=== PATIENT | male | born 2000 | race Caucasian/White ===

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

== ENCOUNTER → 2020-04-08 | Outpatient (CLI) | payer MEDICAID ==
--- NOTE | 2020-04-09 08:51 | XR ---
Left forearm and left wrist HISTORY: M 78.632 2 views of the left forearm, 4 views the left wrist Bone mineralization, joint spaces and alignment are maintained. No fracture or dislocation. IMPRESSION: Unremarkable left forearm and wrist.
== END | disposition home or self-care (01) ==
LOC: RADXRMAIN 16:08
PROVIDERS: ATTEND Family Medicine
DX: M79.632 Pain in left forearm (principal)

== ENCOUNTER → 2020-07-15 | Outpatient (CLI) | payer MEDICAID ==
--- NOTE | 2020-07-15 17:55 | CT ---
EXAMINATION TYPE: CT brain wo con DATE OF EXAM: 07/15/2020 COMPARISON: None INDICATION: Left eye contusion after injury yesterday. DLP: 869.7 mGycm, Automated exposure control for dose reduction was used. CONTRAST: None CT of the brain is performed utilizing 3 mm thick sections through the posterior fossa and 3 mm thick sections through the remaining calvarium. Study is performed within 24 hours of arrival to the [facility]. No abnormal hyperdensity is present to suggest an acute intracranial hemorrhage. No mass lesion is evident. No acute infarcts are evident. Ventricles and sulci are appropriate for the patient age. Paranasal sinuses and mastoid air cells within the [id number] are clear. Left orbit appears unremarkable. No fractures evident IMPRESSIONS: 1. Normal CT Brain
== END | disposition home or self-care (01) ==
LOC: RADCTMAIN 17:20
PROVIDERS: ATTEND Nurse Practitioner Family
DX: S00.83XA Contusion of other part of head, initial encounter (principal)
CPT/HCPCS: 70450

== ENCOUNTER → 2022-11-23 | Outpatient (CLI) | payer MEDICAID ==
[2022-11-23 15:54] LABS: Basophils # (A) 0.07 X 10*3/uL (0.00-0.10); Basophils % (A) 1.2 %; Eosinophils # (A) 0.26 X 10*3/uL (0.04-0.35); Eosinophils % (A) 4.6 %; HCT 49.6 % (39.6-50.0); Lymphocytes # (A) 2.37 X 10*3/uL (0.90-5.00); Lymphocytes % (A) 41.8 %; MCH 30.3 pg (27.0-32.0); MCHC 34.3 d/dL (32.0-37.0); MCV 88.4 FL (80.0-97.0); Mean Platelet Volume 10.5 FL (9.5-12.2); Monocytes # (A) 0.53 X 10*3/uL (0.20-1.00); Monocytes % (A) 9.3 %; NRBC Per 100 WBC 0 X 10*3/uL (0.00-0.01); Neutrophils # (A) 2.41 X 10*3/uL (1.80-7.70); Neutrophils % (A) 42.6 %; Platelet Count 199 X 10*3/uL (140-440); RBC 5.61 X 10*6/uL (4.40-5.60); RDW 11.6 % (11.5-14.5); WBC 5.67 X 10*3/uL (4.50-10.00)
[2022-11-23 16:17] LABS: ALT 57 U/L (10-49); AST 33 U/L (14-35); Alkaline Phosphatase 105 U/L (41-126); BUN/Creat Ratio 14.64 Ratio (12.00-20.00); Blood Urea Nitrogen 16.1 mg/dL (9.0-27.0); Calcium 9.9 mg/dL (8.7-10.3); Carbon Dioxide 28.8 mmol/L (21.6-31.8); Chloride 103 mmol/L (96-109); Glucose 89 mg/dL (70-110); LDL Cholesterol,Calculated 111.8 mg/dL (0.0-131.0); Potassium 4.6 mmol/L (3.5-5.5); Sodium 143 mmol/L (135-145); Total Bilirubin 0.8 mg/dL (0.3-1.2)
== END | disposition home or self-care (01) ==
LOC: LABWHC1 09:17
PROVIDERS: ATTEND Nurse Practitioner Family
DX: R53.83 Other fatigue (principal)
CPT/HCPCS: 36415; 80053; 80061; 82040; 84270; 84403; 84443; 85025

== ENCOUNTER → 2024-08-14 | Outpatient (CLI) | payer BC ==
--- NOTE | 2024-08-14 09:20 | US ---
EXAMINATION TYPE: US abd limited kidneys/bladder DATE OF EXAM: 08/14/2024 COMPARISON: NONE CLINICAL INDICATION: Male, 24 years old with history of R74.01 CHANTALE LFT R30.9 PAINFUL MICTUR R31.29 HE MATUR; Elevated LFTs, kidney pain. TECHNIQUE: Grayscale and color Doppler imaging of the right upper quadrant including the kidneys and urinary bladder. FINDINGS: EXAM MEASUREMENTS: Liver Length: 15.5 cm Gallbladder Wall: 0.2 cm CBD: 0.5 cm Right Kidney: 11.5 x 5.7 x 6.3 cm Left Kidney: 10.6 x 4.6 x 5.6 cm Pancreas: portions visualized wnl, tail obscured by overlying bowel gas. Liver: wnl Gallbladder: wnl CBD: wnl Right Kidney: No hydronephrosis or masses seen Left Kidney: No hydronephrosis or masses seen, upper pole not well visualized. Bladder: not visualized STEVEDORE DOCK NOTES: Exam limited by rib spaces IMPRESSION: 1. Abdomen ultrasound as visualized appears unremarkable. [facility], , 08/14/2024 9:18 AM
== END | disposition home or self-care (01) ==
LOC: RADUSWWP 08:04
PROVIDERS: ATTEND Family Medicine
DX: R74.01 Elevation of levels of liver transaminase levels (principal); R30.9 Painful micturition, unspecified; R31.29 Other microscopic hematuria
CPT/HCPCS: 76705; 76770